=== PATIENT | female | born 1990 | race Two or more races ===

== ENCOUNTER 2024-12-18 17:35 | Emergency (ER) | payer MEDICAID, SELFPAY ==
[2024-12-18 18:04] VITALS: BP 121/81; PULSE 72; RESP 20; TEMP 36.7; O2SAT 100; BMI 25.7
--- NOTE | 2024-12-18 18:25 | XR_ITS ---
Examination: CT brain head without contrast. 2-D sagittal coronal reconstructions Date and time of exam:December 18, 2024 1847 hrs. Comparison December 02, 2022 Indications: Onset severe headache dizziness nausea today CTDI: vol (mGy):45 DLP: (mGycm):937 Technique: Multiple CT axial sections of the brain have been obtained, 5 mm slice thickness. Contrast has not been administered. 2-D sagittal, coronal reconstructions have been obtained Low dose protocols were performed. One or more of the following dose reduction techniques were used; automated exposure control, adjustment of the mA and/or KV according to patient size, use of iterative reconstruction technique. Findings: No significant ventricular enlargement. Intra-axial or extra-axial hemorrhage density is not seen. No mass effect or midline shift Basal cisterns are not remarkable. Fourth ventricle is midline. Cranial vault intact. Impression: Negative for acute hemorrhage, mass effect or midline shift Consider brain MRI follow-up
--- NOTE | 2024-12-18 18:25 | PD.EDRME ---
Rapid Medical Screening Exam RME Arrival date/time: 12/18/24 17:35 34-year-old female presents to the emergency department complaining of occipital headache with nausea and vomiting that started at 1 PM today. Patient reports has had headaches before but this is severe 10 out of 10. Chief Complaint: Headache Time Seen by Provider: 12/18/24 18:04 Vital signs: Vital Signs Temperature 98.0 F 12/18/24 18:04 Pulse Rate 72 12/18/24 18:04 Respiratory Rate 20 12/18/24 18:04 Blood Pressure 121/81 12/18/24 18:04 Pulse Oximetry (%) 100 12/18/24 18:04 Oxygen Delivery Method Room Air 12/18/24 18:04 Vital signs reviewed by provider: Yes
[2024-12-18] MEDS: ACETAMINOPHEN 500 MG TABLET 1000 MG PO (19:36)
[2024-12-18] MEDS: METOCLOPRAMIDE INJ 5 MG/ML VIAL 2 ML 10 MG IM (19:36)
--- NOTE | 2024-12-18 20:21 | PD.EDHA ---
ED Headache RME/HPI General Chief Complaint: Headache Stated Complaint: SEVERE LAN, VOMITING AND DIZZINESS SINCE 1300 Time Seen by Provider: 12/18/24 18:04 Source: patient Arrival date/time: 12/18/24 17:35 34-year-old female presents to the emergency department complaining of occipital headache with nausea and vomiting that started at 1 PM today. Patient reports has had headaches before but this is severe 10 out of 10. Mode of arrival: ambulatory Limitations: no limitations RME / HPI RME / HPI Narrative: 12/18/24 17:35 34-year-old female presents to the emergency department complaining of occipital headache with nausea and vomiting that started at 1 PM today. Patient reports has had headaches before but this is severe 10 out of 10. Related Data Previous Rx's ?Medication ?Instructions ?Recorded hydrocodone 5 mg-acetaminophen 325 1 tab PO TID #20 tabs 10/25/20 mg tablet ([place]) naproxen 500 mg tablet (Naprosyn) 500 mg PO BID #60 tabs 10/25/20 ibuprofen 800 mg tablet 800 mg PO TID PRN pain #30 tabs 10/30/21 cyclobenzaprine 10 mg tablet 10 mg PO HS PRN muscle spasm #20 02/03/24 tabs ibuprofen 800 mg tablet (IBU) 800 mg PO Q8H #20 tabs 02/03/24 acetaminophen 500 mg capsule 1,000 mg (2 x 500 mg) PO Q6H PRN 07/21/24 fever or pain #30 caps esomeprazole magnesium 20 mg 20 mg PO QDAY #20 caps 07/21/24 capsule,delayed release (Nexium) sulfamethoxazole 800 1 tab PO BID #14 tabs 07/21/24 mg-trimethoprim 160 mg tablet (Bactrim DS) ibuprofen 800 mg tablet 800 mg PO TID PRN pain #30 tabs 12/18/24 ondansetron 4 mg disintegrating 4 mg PO Q8H PRN nausea and 12/18/24 tablet vomiting #7 tabs Allergies Allergy/AdvReac Type Severity Reaction Status Date / Time No Known Allergies Allergy Verified 12/18/24 17:38 Review of Systems Review of Systems Systems Reviewed: All systems reviewed, normal except as documented Constitutional Constitutional: Reports system reviewed and no additional complaints, except as documented, Denies body ache(s), Denies chills, Denies fever(s) and Reports headache(s) Eyes Eyes: Reports system reviewed and no additional complaints, except as documented and Denies change in vision ENT Ears, Nose, Mouth, and Throat: Reports system reviewed and no additional complaints, except as documented, Denies disequilibrium, Denies dizziness, Reports headache(s), Denies sore throat and Denies vertigo Cardiovascular Cardiovascular: Reports system reviewed and no additional complaints, except as documented, Denies chest pain and Denies dyspnea Respiratory Respiratory: Reports system reviewed and no additional complaints, except as documented, Denies chest congestion, Denies cough and Denies dyspnea Gastrointestinal Gastrointestinal: Reports system reviewed and no additional complaints, except as documented, Denies abdominal pain, Reports nausea and Reports vomiting Musculoskeletal Musculoskeletal: Reports system reviewed and no additional complaints, except as documented, Denies abnormal gait and Denies arthralgias Integumentary/Breasts Skin/Breast: Reports system reviewed and no additional complaints, except as documented, Denies erythema, Denies rash and Denies wounds Neurologic Neurologic: Reports system reviewed and no additional complaints, except as documented, Denies abnormal gait, Denies disequilibrium, Denies dizziness, Reports headache(s) and Denies vertigo Past Medical History Past Medical History CARDIAC: Negative Cardiac Disorders or Congestive Heart Failure RESPIRATORY: Negative Chronic Obstructive Pulmonary Disease (COPD) or Asthma GENITOURINARY: Negative Renal Disease ENDOCRINE: Negative Diabetes Mellitus Type 1 or Diabetes Mellitus Type 2 HEMATOLOGIC: Positive Anemia; Negative Sickle Cell Disease OTHER HISTORY: Negative Autoimmune Disease or Cancer Surgical History SURGICAL: Positive Tubal Ligation Social History SMOKING STATUS: Never smoker ED Exam General Limitations: Present no limitations General appearance: Present alert and in no apparent distress Head Head exam: Present atraumatic Eye Eye exam: Present normal appearance, PERRL and EOMI ENT ENT exam: Present normal exam, normal oropharynx and mucous membranes moist Neck Neck exam: Present normal inspection, full ROM and trachea midline Chest Chest inspection: Present normal inspection and symmetric chest wall rise Respiratory Respiratory exam: Present normal lung sounds bilaterally Cardiovascular Cardiovascular exam: Present regular rate, normal rhythm and normal heart sounds Abdominal Exam Abdominal exam: Present soft and normal bowel sounds Extremities Exam Extremities exam: Present normal inspection and full ROM Back Exam Back exam: Present normal inspection and full ROM Neurological Exam Neurological exam: Present alert, oriented X3 and CN II-XII intact Psychiatric Psychiatric exam: Present normal affect and normal mood Skin Skin exam: Present warm, dry, intact and normal color Course Quality Measures none Orders Category Date Time Status CT head/brain wo con Stat Exams 12/18/24 18:25 Completed Acetaminophen Tab [Tylenol ES Tab] Med 12/18/24 18:36 Discontinued 1,000 mg PO X1 ONE Ketorolac Inj [Toradol Inj] Med 12/18/24 18:23 Discontinued 30 mg IM X1 ONE Metoclopramide Inj [Reglan Inj] Med 12/18/24 18:23 Discontinued 10 mg IM X1 ONE Vital Signs Vital signs: Vital Signs Temperature 98.0 F 12/18/24 18:04 Pulse Rate 72 12/18/24 18:04 Respiratory Rate 20 12/18/24 18:04 Blood Pressure 121/81 12/18/24 18:04 Pulse Oximetry (%) 100 12/18/24 18:04 Oxygen Delivery Method Room Air 12/18/24 18:04 100% room air within normal limits Headache MDM Narrative MDM Narrative:: 34-year-old female presents to the emergency department complaining of occipital headache with nausea and vomiting that started at 1 PM today. Patient reports has had headaches before but this is severe 10 out of 10. Patient GCS of 15 with steady gait. Patient denies any visual disturbances. Patient reports significant improvement in headache after given medication. CT scan of head was unremarkable. Patient reports drinks 1 red bull a day daily before work. And reports has not drank 1 the last 2 days. Instructed patient to get plenty of rest and drink plenty of fluids and take ibuprofen as needed for pain and have follow-up with primary care provider. Patient data External records reviewed:: [facility] previous records Clinical information provided by:: patient Social determinants that could affect healthcare access:: none Patient has the following chronic illnesses:: See chart How is presenting disease/condition affected by chronic disease/condition?: uneffected by Evaluation data The following diagnostics were reviewed and interpreted by me:: radiology exam(s) Lab and/or radiology exams considered but not ordered:: Ordered Interpretation Summary: Interpreted by me Medications / Prescriptions Medications or Prescriptions considered but not ordered:: Ordered Medication administrations:: Medication Administration History Discontinued Medications Acetaminophen (Acetaminophen 500 Mg Tablet) 1,000 mg PO X1 ONE Stop: 12/18/24 18:37 Last Admin: 12/18/24 19:36 Dose: 1,000 mg Documented By: NARENDRA Ketorolac Tromethamine (Ketorolac Inj 60 Mg/2 Ml Vial) 30 mg IM X1 ONE Stop: 12/18/24 18:24 Last Admin: 12/18/24 19:37 Dose: Not Given Documented By: NARENDRA Non-Admin Reason: Change of Condition Metoclopramide HCl (Metoclopramide Inj 5 Mg/Ml Vial 2 Ml) 10 mg IM X1 ONE; Protocol Stop: 12/18/24 18:24 Last Admin: 12/18/24 19:36 Dose: 10 mg Documented By: NARENDRA Given Consultations Consultation(s) initiated? (list below): No Diagnosis Differential diagnosis headache: migraine, tension headache, subarachnoid hemorrhage, headache, sinusitis and postconcussion syndrome Most likely diagnosis given after review of the tests above:: Headache Admission Indicated Admission indicated?: not indicated Admission Request Was there a request for admission?: No Disposition Plan Disposition Plan: Discharge Discharge Attestation Discharge Attestation: The patient and all family members were given an opportunity to ask questions and understood the discharge instructions. Discharge instructions specifically effects, indications for sooner follow up or return to the emergency department, and the expected course of current diagnosis. Patient condition: Stable Discharge Plan Plan Patient Disposition: HOME (Self Care) Disposition Comment: Stable Prescriptions/Referrals Prescriptions/Med Rec: New ibuprofen 800 mg tablet 800 mg PO TID PRN (Reason: pain) Qty: 30 0RF ondansetron 4 mg tablet,disintegrating 4 mg PO Q8H PRN (Reason: nausea and vomiting) Qty: 7 0RF No Action ibuprofen 800 mg tablet 800 mg PO TID PRN (Reason: pain) Qty: 30 0RF naproxen [Naprosyn] 500 mg tablet 500 mg PO BID Qty: 60 0RF hydrocodone-acetaminophen [[place]] 5-325 mg tablet 1 tab PO TID MDD 3 Qty: 20 0RF ibuprofen [IBU] 800 mg tablet 800 mg PO Q8H Qty: 20 0RF cyclobenzaprine 10 mg tablet 10 mg PO HS PRN (Reason: muscle spasm) Qty: 20 0RF sulfamethoxazole-trimethoprim [Bactrim DS] 800-160 mg tablet 1 tab PO BID Qty: 14 0RF acetaminophen 500 mg capsule 1,000 mg PO Q6H PRN (Reason: fever or pain) Qty: 30 0RF esomeprazole magnesium [Nexium] 20 mg capsule,delayed release(DR/TRUPTI) 20 mg PO QDAY Qty: 20 0RF Referrals: Alicja Ansari PA-C [Primary Care Provider] - In 1 week Problem List Clinical Impression: Headache Patient/Caregiver Discharge Instructions Discharge Activity: activity as tolerated Education Materials: Self-Care for Headaches Additional Instructions: Drink plenty of fluids and get plenty of rest. Take ibuprofen as needed for pain. Make sure you get plenty of sleep. Follow-up with primary care provider in 2 to 3 days. Return to emergency department for any worsening symptoms or as needed. Print Language: Guamanian Stand Alone Forms: Marisol Award Info., Work/School Release, Patient Portal Info Letter PA/HALLIE Supervising Physician PA/HALLIE Supervising Physician: Dr. Valente
== END 2024-12-18 20:39 | disposition home or self-care (01) ==
PROVIDERS: Emergency Provider Emergency Medicine; PCP Physician Assistant Medical
DX: R51.9 Headache, unspecified (principal); R11.2 Nausea with vomiting, unspecified
CPT/HCPCS: 70450; 96372; 99284; J2765; A9270

== ENCOUNTER 2025-01-18 13:55 | Emergency (ER) | payer MEDICAID, SELFPAY ==
[2025-01-18 14:16] VITALS: BP 109/77; PULSE 75; RESP 20; TEMP 37; O2SAT 99
--- NOTE | 2025-01-18 14:19 | EKG_ITS ---
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
--- NOTE | 2025-01-18 14:19 | XR_ITS ---
Examination: PA lateral chest 2 views TECHNIQUE: Upright PA lateral chest 2 views Exam date and time: January 18, 2025 1425 hours INDICATIONS: Left-sided chest pain beginning 2 days ago. FINDINGS: Normal heart size Lungs are clear. The osseous structures are intact IMPRESSION: No active disease
--- NOTE | 2025-01-18 14:20 | PD.EDRME ---
Rapid Medical Screening Exam RME Arrival date/time: 01/18/25 13:55 34-year-old female presents emergency department complaints of left-sided chest pain and back pain worse with movement Chief Complaint: Back Pain/Injury Time Seen by Provider: 01/18/25 14:06 Vital signs: Vital Signs Temperature 98.6 F 01/18/25 14:16 Pulse Rate 75 01/18/25 14:16 Respiratory Rate 20 01/18/25 14:16 Blood Pressure 109/77 01/18/25 14:16 Pulse Oximetry (%) 99 01/18/25 14:16 Oxygen Delivery Method Room Air 01/18/25 14:16
[2025-01-18 15:04] LABS: Basophils % (Auto) 0 % (0-2.5); Eosinophils # (Auto) 0.1 Thou/mm3 (0.0-0.5); Eosinophils % (Auto) 1 % (0-10); Hematocrit 34.8 % (36.0-46.0); Hemoglobin 11.5 g/dL (12.0-16.0); Immature Granulocytes % (Auto) 0 % (0-0); Lymphocytes # (Auto) 1.4 Thou/mm3 (1.0-4.8); Lymphocytes % (Auto) 29 % (10-50); Mean Corpuscular Hemoglobin 28.3 pg (25.0-35.0); Mean Corpuscular Volume 86 fL (80-100); Monocytes # (Auto) 0.3 Thou/mm3 (0.0-0.8); Monocytes % (Auto) 6 % (0-12); Neutrophils # (Auto) 3.2 Thou/mm3 (1.8-7.7); Neutrophils % (Auto) 64 % (37-80); Nucleated Red Blood Cell % 0 /100 WBC (0); Platelet Count 269 Thou/mm3 (140-440); RDW Standard Deviation 44.8 fL (36.4-46.3); Red Blood Count 4.06 Miln/mm3 (4.00-5.20)
[2025-01-18 15:46] LABS: Alanine Aminotransferase 9 U/L (10-49); Albumin, Serum 4.2 gm/dL (3.5-5.0); Albumin/Globulin Ratio 1.6 (1.2-2.2); Alkaline Phosphatase 74 U/L (46-116); Anion Gap 8 (7-16); Aspartate Amino Transferase < 8 U/L (0-34); BUN/Creatinine Ratio 11 Ratio (12-20); Bilirubin,Total 0.3 mg/dL (0.3-1.2); Blood Urea Nitrogen 10 mg/dL (9-23); Calcium 9.1 mg/dL (8.3-10.6); Calcium (Corrected) 9.1 mg/dL (8.5-10.1); Carbon Dioxide 27.1 mMol/L (20.0-31.0); Chloride 106 mMol/L (98-107); Creatinine (Component) 0.9 mg/dL (0.6-1.3); Globulin 2.7 gm/dL (2.3-3.5); Glucose 95 mg/dL (74-106); Lipase 35 U/L (12-53); Osmolality,Calculated 280 (275-295); Potassium 4.2 mMol/L (3.4-5.1); Sodium 141 mMol/L (136-145); Total Protein 6.9 gm/dL (5.7-8.2); Troponin I < 0.002 ng/mL (0.0-0.045); eGFR > 60 See Note
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
== END 2025-01-18 18:18 | disposition home or self-care (01) ==
PROVIDERS: Nurse Practitioner Primary Care; Emergency Provider Emergency Medicine; PCP Physician Assistant Medical
DX: R07.89 Other chest pain (principal); M54.9 Dorsalgia, unspecified
CPT/HCPCS: 36415; 71046; 80053; 81001; 81025; 83690; 84484; 85025; 93005; 99283